=== PATIENT | female | born 1960 | race African-American/Black ===

== ENCOUNTER 2022-03-06 12:52 | Outpatient (CLI) | payer BC ==
[~2022-03-06 12:52] MED LIST: Iopamidol 300 61% 100 ML VIAL FS ONE
== END 2022-03-06 12:53 | disposition home or self-care (01) ==
LOC: CSHCT 12:52
PROVIDERS: ATTEND Urology
DX: N20.0 Calculus of kidney (principal); N13.5 Crossing vessel and stricture of ureter without hydronephrosis; N28.9 Disorder of kidney and ureter, unspecified; K57.30 Diverticulosis of large intestine without perforation or abscess without bleeding; Z90.710 Acquired absence of both cervix and uterus
CPT/HCPCS: 74178; 82565